=== PATIENT | female | born 1970 | race Caucasian/White ===

== ENCOUNTER 2017-07-28 05:39 | Emergency (ER) | payer OTHER ==
[~2017-07-28] VITALS: Ht 165.1 cm; Wt 74.8 kg
[2017-07-28 05:51] VITALS: BP 115/76
[2017-07-28 06:26] LABS: Basophils # (auto) 0 uL; Basophils % (auto) 0.4 % (0.0-2.0); CONDITION Y; Eosinophils # (auto) 0.2 uL; Eosinophils % (auto) 4.2 % (0.0-7.0); Hematocrit 39.1 % (36.0-46.0); Hemoglobin 12.9 g/dL (12.2-16.2); Lymphocytes # (auto) 1.2 uL; Lymphocytes % (auto) 29.1 % (10.0-50.0); Mean Corpuscular Hemoglobin 28.4 pg (28.0-32.0); Mean Corpuscular Hgb Conc. 32.9 g/dL (32.0-36.0); Mean Corpuscular Volume 86.4 fL (80.0-100.0); Mean Platelet Volume 9.5 fL (7.4-10.4); Monocytes # (auto) 0.4 uL; Monocytes % (auto) 10.3 % (0.0-12.0); Neutrophils # (auto) 2.2 uL; Platelet Count (auto) 228 10^3/uL (140-450); Red Cell Distribution Width 14.2 % (11.6-16.0)
[2017-07-28 06:52] LABS: Albumin 3.8 g/dL (3.4-5.0); BUN/Creatinine Ratio 12.4; Bilirubin, Total 0.5 mg/dL (0.2-1.0); Calcium 8.6 mg/dL (8.5-10.1); Potassium 3.5 mmol/L (3.5-5.1); Total Protein 7.8 g/dL (6.4-8.2)
== END 2017-07-28 08:01 | disposition home or self-care (01) ==
LOC: ER 05:39
DX: B02.9 Zoster without complications (principal)
CPT/HCPCS: 36415; 80053; 84702; 85025

== ENCOUNTER 2020-02-12 11:23 | Emergency (ER) | payer OTHER ==
[~2020-02-12] VITALS: Ht 165.1 cm; Wt 59.0 kg
[2020-02-12 12:33] VITALS: BP 117/72
[2020-02-12] MEDS ORDERED: IBUPROFEN 800 MG TAB PO ONE (13:30)
== END 2020-02-12 13:31 | disposition home or self-care (01) ==
LOC: ER 11:23
DX: G56.21 Lesion of ulnar nerve, right upper limb (principal); M77.9 Enthesopathy, unspecified
CPT/HCPCS: 73110